=== PATIENT | male | born 1985 | race Caucasian/White ===

== ENCOUNTER 2016-08-22 16:40 | Emergency (ER) | payer BC ==
[~2016-08-22] VITALS: Ht 175.3 cm; Wt 143.0 kg
[2016-08-22] MEDS ORDERED: SODIUM CHLORIDE FLUSH 3 ML SYR IV PRN (17:00)
[2016-08-22] MEDS ORDERED: SODIUM CHLORIDE FLUSH 10 ML SYR IV PRN (17:00)
[2016-08-22 17:16] LABS: BASOPHILS % (AUTO) 1 % (0-2); EOSINOPHILS # (AUTO) 0.1 10^3uL; EOSINOPHILS % (AUTO) 1 % (0-4); LYMPHOCYTES # (AUTO) 2.8 X10^3; MEAN CORPUSCULAR HEMOGLOBIN 32.2 PG (26.0-34.0); MEAN CORPUSCULAR VOLUME 92 FL (80-100); MEAN PLATELET VOLUME 10.9 FL (6.0-9.5); MONOCYTES # (AUTO) 0.8 X10^3; MONOCYTES % (AUTO) 11 % (3-11); NEUTROPHILS # (AUTO) 3.8 X10^3; NEUTROPHILS % (AUTO) 50 % (51-67); PLATELET COUNT 240 10^3uL (150-450); WHITE BLOOD COUNT 7.61 10^3uL (4.0-11.0)
[2016-08-22 17:25] LABS: ALBUMIN 4.9 g/dL (3.4-5.0); ALKALINE PHOSPHATASE 74 U/L (38-126); ANION GAP 17.7 MEQ/L (3-15); BUN/CREATININE RATIO 16 (10-20); CALCULATED IONIZED CALCIUM 4.1 mg/dL (3.8-4.6); TOTAL PROTEIN 8.2 g/dL (6.4-8.5)
[2016-08-22] MEDS: KETOROLAC 30 MG/ML (TORADOL) 1 ML VIAL IV ONE ×2 (17:39→17:41)
[2016-08-22 18:00] VITALS: BP 113/55
== END 2016-08-22 18:00 | disposition home or self-care (01) ==
LOC: ED 16:42
DX: R07.89 Other chest pain (principal); Z87.891 Personal history of nicotine dependence
CPT/HCPCS: 36415; 71010; 80053; 84484; 85025; 93005; 93010; 99284; 99285

== ENCOUNTER → 2016-08-22 | Outpatient (CLI) | payer BC ==
[2016-08-22 16:42] VITALS: BP 147/94
== END ==
LOC: MHUC 16:28
PROVIDERS: ATTEND Physician Assistant
DX: R07.9 Chest pain, unspecified (principal)